=== PATIENT | female | born 1965 | race Caucasian/White ===

== ENCOUNTER 2016-04-04 15:03 | Inpatient (IN) ==
[2016-04-04 15:41] LABS: MANUAL DIFF NEEDED? NO; URINE MICRO REVIEW NEEDED? NO; URINE SOURCE CLEAN CATCH
[2016-04-04 15:56] LABS: BASO% 0.1 % (0.0-0.8); EOS# 0.01 X1000 (0.0-0.7); EOS% 0.1 % (0.0-10.0); HEMATOCRIT 44.3 % (37.0-47.0); HEMOGLOBIN 15.5 g/dL (12.0-16.0); IMM GRAN# 0.05 X1000 (0.0-0.04); IMM GRAN% 0.3 % (0.0-0.5); LYMPH# 2.38 X1000 (1.2-3.4); LYMPH% 13.3 % (20.5-51.1); MCV 88.6 FL (81-99); MONO# 1.26 X1000 (0.11-0.59); MPV 10.4 FL (7.4-10.4); NEUT% 79.2 % (42.2-75.2); PLT 354 X1000 (130-400)
[2016-04-04 15:58] LABS: BILIRUBIN URINE NEGATIVE (NEGATIVE); BLOOD URINE TRACE (NEGATIVE); COLOR YELLOW; GLUCOSE URINE NEGATIVE (NEGATIVE); LEUKOCYTES URINE NEGATIVE (NEGATIVE); NITRITE URINE NEGATIVE (NEGATIVE); PROTEIN URINE 30 mg/dL (NEGATIVE); SP GRAVITY URINE 1.027; TURBIDITY URINE CLEAR (CLEAR); UROBILINOGEN URINE NORMAL (NORMAL)
[2016-04-04 15:59] LABS: UR EPITHELIAL CELLS <10 /HPF (<10); URINE BACTERIA 2+ /HPF; URINE CULTURE NEEDED? YES; URINE RBC <10 /HPF (<10); URINE WBC <10 /HPF (<10)
[2016-04-04 16:16] LABS: AGAP 15; ALBUMIN 4.8 g/dL (3.5-5.0); ALKALINE PHOSPHATASE 80 U/L (32-104); AMYLASE 84 U/L (20-200); BUN 9 mg/dL (8-22); CALCIUM 9.1 mg/dL (8.8-10.2); CHLORIDE 99 mmol/L (98-107); COSMO 273; GOT 22 U/L (10-30); GPT 20 U/L (10-36); LIPASE 29 U/L (13-60); POTASSIUM 3.8 mmol/L (3.5-5.1); SODIUM 136 mmol/L (136-145); TCO2 22 mmol/L (25-35); TOTAL BILIRUBIN 0.43 mg/dL (0.20-1.00); TOTAL PROTEIN 8.1 g/dL (6.3-8.3)
[2016-04-04] MEDS ORDERED: MORPHINE IV ONE ×2 (17:56→20:24)
[2016-04-04] MEDS ORDERED: NS 1,000 ML IV ONE (17:56)
[2016-04-04] MEDS ORDERED: ZOFRAN IV ONE (17:56)
--- NOTE | 2016-04-04 17:56 | PROVIDER DOCUMENTATION ---
HPI-Abdominal Pain/GI Problem <Juliano Harris - Last Filed: 04/04/16 20:25> - General Source: patient <Timothy Payne - Last Filed: 04/04/16 21:19> - General Chief Complaint: Abdominal Pain Stated Complaint: abd pain Time Seen by Provider: 04/04/16 17:20 Allergies/Adverse Reactions: Patient Allergies Allergy/AdvReac Type Severity Reaction Status Date / Time No Known Allergies Allergy Verified 04/04/16 19:10 Home Medications: No Home Medications 09/04/13 - History of Present Illness-ABD Nature of Presenting Problems: Pt is a 50 y/o F c chief complaint of epigastric abd pain that radiates to her back c nausea and vomiting x 24 hours. Pt states that she cannot tolerate liquids and has had brownish yellow emesis. Pt states she has had multiple similar episodes over the last two years. Pt was seen at urgent care this morning and was told to report to the ER if her symptoms worsened. Pt states that her WBC was 14K this morning. Pt denies medical hx. On arrival, pt is in minimal distress. (Timothy Payne) Review of Systems - Adult - REVIEW OF SYSTEMS - ADULT Constitutional: reports: no symptoms reported. denies: chills, fever, fatique Eyes: reports: no symptoms reported. denies: blurred vision, double vision Ears, Nose, Mouth & Throat: reports: no symptoms reported. denies: ear pain, nose pain, throat pain Cardiovascular: reports: no symptoms reported. denies: chest pain, irregular heart rate Respiratory: reports: no symptoms reported. denies: cough, shortness of breath Gastrointestinal: reports: abdominal pain, diarrhea, nausea, vomiting Genitourinary: reports: no symptoms reported. denies: dysuria, flank pain Musculoskeletal: reports: no symptoms reported. denies: joint pain, joint swelling Integumentary: reports: no symptoms reported. denies: hives, itching Neurological: reports: no symptoms reported. denies: numbness, paresthesia Psychiatric: reports: no symptoms reported. denies: anxiety, emotional problems Endocrine: reports: no symptoms reported. denies: cold intolerance, heat intolerance Hematologic/Lymphatic: reports: no symptoms reported. denies: blood clots, low blood count Allergic/Immunologic: reports: no symptoms reported. denies: allergic reactions , food allergy All Other Systems: Reviewed and Negative <Timothy Payne - Last Filed: 04/04/16 21:19> Past History - Adult - PAST MEDICAL HISTORY-ADULT Review of Records: reports: Old Records Reviewed, Nursing Assessment Review, Medications Reviewed, Social history reviewed & non-contributory. Major Childhood Illnesses: reports: denies history Cardiovascular: reports: denies history Respiratory: reports: denies history Gastrointestinal: reports: denies history Obstetrical/Gynecological: reports: denies history Genitourinary: reports: denies history Musculoskeletal: reports: denies history Neurological: reports: denies history Endocrine/Immune: reports: denies history Other Conditions: reports: denies history - PRIOR SURGERIES/PROCEDURES Surgical/Procedure History: reports: none - IMMUNIZATION STATUS Childhood Immunizations: See Nurse Assessment Flu Vaccine: See Nurse Assessment - FAMILY HISTORY Family History: reviewed, not pertinent - SOCIAL HISTORY Smoking: denies Substance Use: none/never Alcohol Use Frequency: never Living Situation: family <Timothy Payne - Last Filed: 04/04/16 21:19> Physical Exam-General - PHYSICAL EXAM-ADULT Initial Vital Signs Reviewed: Yes - CONSTITUTIONAL General Appearance: appears well, alert, no apparent distress - EYES Eyes: PERRL/EOMI, pink conjunctivae - HEAD, EARS, NOSE, MOUTH & THROAT HENMT: normocephalic/atraumatic, moist mucous membranes, normal ENT inspection - NECK Neck: non-tender, full range of motion, normal inspection - RESPIRATORY Respiratory: chest non-tender, lungs clear, normal breath sounds - CARDIOVASCULAR Cardiovascular: normal peripheral pulses, regular rate, rhythm, no edema - GASTROINTESTINAL (ABDOMEN) Abdominal Exam: normal bowel sounds, non tender, soft - LYMPHATIC Lymphatic: no adenopathy - MUSCULOSKELETAL Back Exam: normal inspection, no CVA tenderness, no vertebral tenderness Extremity: normal range of motion, non-tender, normal gait - SKIN Integumentary: normal color, normal turgor, warm/dry - NEUROLOGIC Neurologic: grossly normal, no motor/sensory deficits - PSYCHIATRIC Psych/Mental Status: normal mood/affect, normal thought content, normal thought process, oriented x 3 <Timothy Payne - Last Filed: 04/04/16 21:19> Progress <Juliano Harris - Last Filed: 04/04/16 20:25> - REASSESSMENT Reassessment #1 Time Reassessed: 19:29 (Pt in CT now. ) - CT/MRI 1 CT Study: Abdomen, Pelvis Impression: Abnormal (CHOLELITHIASIS AND ACUTE CHOLECYSTITIS - RADIOLOGY) - CONSULTS/PCP/HOSPITALIST Notification #1 *Consult/PCP/Hospitalist*: Dr. Ramos (General Surgery) Time Discussed: 20:21 (2100 - Dr. Ramos called back and requested we admit pt to his service. He is undecided on if he will take her to surgery tonight or tomorrow. Requested zozyn be given and pt be NPO. ) Reason/Comments: will look at images and determine if pt needs to go to OR tonight <Timothy Payne - Last Filed: 04/04/16 21:19> - PLAN OF CARE/RESULTS Progress/Plan/Lab Results: Vital Signs - 24 hr 04/04/16 04/04/16 15:08 17:07 Temperature 98.1 F Pulse Rate 81 70 Respiratory 18 16 Rate Blood Pressure 174/91 152/76 O2 Sat by Pulse 98 100 Oximetry Orders Category Date Time Status Saline Loc DIRECTED Care 04/04/16 15:18 Active NPO Diet 04/04/16 15:[address] ABD/PELVIS W/ IV CONT ONLY [CT] Stat Exams 04/04/16 17:23 Taken AMYLASE [CHEM] Stat Lab 04/04/16 15:15 Completed CBC WITH ELECTRONIC DIFF [HEME] Stat Lab 04/04/16 15:15 Completed COMPREHENSIVE METABOLIC PANEL [CHEM] Stat Lab 04/04/16 15:15 Completed LIPASE [CHEM] Stat Lab 04/04/16 15:15 Completed TEST-URINE [PREG] Stat Lab 04/04/16 15:20 Completed URINALYSIS W/POSS RFLX CULT [URINALYSIS] Stat Lab 04/04/16 15:15 Completed URINE CULTURE [RM] Routine Lab 04/04/16 16:57 Received 0.9% Sodium Chloride Inj [Ns] 1,000 ml Med 04/04/16 17:56 Discontinued IV 999 mls/hr Lido/Wagner Alk/Al&mg Hydrox [G.i. Cocktail] Med 04/04/16 17:58 Discontinued 30 ml PO NOW ONE Morphine Med 04/04/16 17:56 Discontinued 4 mg IV NOW ONE Morphine Med 04/04/16 20:24 Discontinued 4 mg IV NOW ONE Ondansetron [Zofran] Med 04/04/16 17:56 Discontinued 4 mg IV NOW ONE Pantoprazole [Protonix] Med 04/04/16 17:58 Discontinued 40 mg IV NOW ONE Piperacil/Tazobact 3.375 gm/Ns [Zosyn 3.375 gm/Ns] 50 Med 04/04/16 20:23 Active ml IV NOW Sodium Chloride 0.9% Med 04/04/16 17:58 Discontinued 10 ml INJ NOW ONE Laboratory Tests 04/04/16 04/04/16 04/04/16 15:15 15:15 15:15 WBC 17.88 H RBC 5.00 Hgb 15.5 Hct 44.3 MCV 88.6 MCH 31.0 MCHC 35.0 RDW Std Deviation 12.8 Plt Count 354 MPV 10.4 Immature Gran % (Auto) 0.3 Neut % (Auto) 79.2 H Lymph % (Auto) 13.3 L Faulkner % (Auto) 7.0 Eos % (Auto) 0.1 Baso % (Auto) 0.1 Immature Gran # (Auto) 0.05 H Neut # 14.16 H Lymph # 2.38 Faulkner # 1.26 H Eos # 0.01 Baso # 0.02 Sodium 136 Potassium 3.8 Chloride 99 Carbon Dioxide 22 L Anion Gap 15 BUN 9 Creatinine 0.8 Estimated GFR/1.73 m2 > 60 BUN/Creatinine Ratio 11 Glucose 145 H Calculated Osmolality 273 Calcium 9.1 Total Bilirubin 0.43 AST 22 ALT 20 Alkaline Phosphatase 80 Total Protein 8.1 Albumin 4.8 Globulin 3.3 Albumin/Globulin Ratio 1.5 Amylase 84 Lipase 29 Urine Source CLEAN CATCH Urine Color YELLOW Urine Turbidity CLEAR Urine pH 6.0 Ur Specific [place] 1.027 Urine Protein 30 A Ur Glucose (Stick) NEGATIVE Ur Ketones (Stick) TRACE A Urine Blood TRACE A Urine Nitrite NEGATIVE Urine Bilirubin NEGATIVE Urobilinogen Dipstick NORMAL Urine Leukocytes NEGATIVE Urine WBC (Auto) <10 Urine RBC (Auto) <10 U Epithel Cells (Auto) <10 Urine Bacteria (Auto) 2+ Urine Test 04/04/16 15:20 WBC RBC Hgb Hct MCV MCH MCHC RDW Std Deviation Plt Count MPV Immature Gran % (Auto) Neut % (Auto) Lymph % (Auto) Faulkner % (Auto) Eos % (Auto) Baso % (Auto) Immature Gran # (Auto) Neut # Lymph # Faulkner # Eos # Baso # Sodium Potassium Chloride Carbon Dioxide Anion Gap BUN Creatinine Estimated GFR/1.73 m2 BUN/Creatinine Ratio Glucose Calculated Osmolality Calcium Total Bilirubin AST ALT Alkaline Phosphatase Total Protein Albumin Globulin Albumin/Globulin Ratio Amylase Lipase Urine Source Urine Color Urine Turbidity Urine pH Ur Specific [place] Urine Protein Ur Glucose (Stick) Ur Ketones (Stick) Urine Blood Urine Nitrite Urine Bilirubin Urobilinogen Dipstick Urine Leukocytes Urine WBC (Auto) Urine RBC (Auto) U Epithel Cells (Auto) Urine Bacteria (Auto) Urine Test NEGATIVE (Juliano Harris) Orders Category Date Time Status Saline Loc DIRECTED Care 04/04/16 15:18 Active NPO Diet 04/04/16 15:[address] ABD/PELVIS W/ IV CONT ONLY [CT] Stat Exams 04/04/16 17:23 Taken AMYLASE [CHEM] Stat Lab 04/04/16 15:15 Completed CBC WITH ELECTRONIC DIFF [HEME] Stat Lab 04/04/16 15:15 Completed COMPREHENSIVE METABOLIC PANEL [CHEM] Stat Lab 04/04/16 15:15 Completed LIPASE [CHEM] Stat Lab 04/04/16 15:15 Completed TEST-URINE [PREG] Stat Lab 04/04/16 15:20 Completed URINALYSIS W/POSS RFLX CULT [URINALYSIS] Stat Lab 04/04/16 15:15 Completed URINE CULTURE [RM] Routine Lab 04/04/16 16:57 Received 0.9% Sodium Chloride Inj [Ns] 1,000 ml Med 04/04/16 17:56 Discontinued IV 999 mls/hr Lido/Wagner Alk/Al&mg Hydrox [G.i. Cocktail] Med 04/04/16 17:58 Discontinued 30 ml PO NOW ONE Morphine Med 04/04/16 17:56 Discontinued 4 mg IV NOW ONE Ondansetron [Zofran] Med 04/04/16 17:56 Discontinued 4 mg IV NOW ONE Pantoprazole [Protonix] Med 04/04/16 17:58 Discontinued 40 mg IV NOW ONE Sodium Chloride 0.9% Med 04/04/16 17:58 Discontinued 10 ml INJ NOW ONE Laboratory Tests 04/04/16 04/04/16 04/04/16 15:15 15:15 15:15 WBC 17.88 H RBC 5.00 Hgb 15.5 Hct 44.3 MCV 88.6 MCH 31.0 MCHC 35.0 RDW Std Deviation 12.8 Plt Count 354 MPV 10.4 Immature Gran % (Auto) 0.3 Neut % (Auto) 79.2 H Lymph % (Auto) 13.3 L Faulkner % (Auto) 7.0 Eos % (Auto) 0.1 Baso % (Auto) 0.1 Immature Gran # (Auto) 0.05 H Neut # 14.16 H Lymph # 2.38 Fa[place]ner # 1.26 H Eos # 0.01 Baso # 0.02 Sodium 136 Potassium 3.8 Chloride 99 Carbon Dioxide 22 L Anion Gap 15 BUN 9 Creatinine 0.8 Estimated GFR/1.73 m2 > 60 BUN/Creatinine Ratio 11 Glucose 145 H Calculated Osmolality 273 Calcium 9.1 Total Bilirubin 0.43 AST 22 ALT 20 Alkaline Phosphatase 80 Total Protein 8.1 Albumin 4.8 Globulin 3.3 Albumin/Globulin Ratio 1.5 Amylase 84 Lipase 29 Urine Source CLEAN CATCH Urine Color YELLOW Urine Turbidity CLEAR Urine pH 6.0 Ur Specific [place] 1.027 Urine Protein 30 A Ur Glucose (Stick) NEGATIVE Ur Ketones (Stick) TRACE A Urine Blood TRACE A Urine Nitrite NEGATIVE Urine Bilirubin NEGATIVE Urobilinogen Dipstick NORMAL Urine Leukocytes NEGATIVE Urine WBC (Auto) <10 Urine RBC (Auto) <10 U Epithel Cells (Auto) <10 Urine Bacteria (Auto) 2+ Urine Test 04/04/16 15:20 WBC RBC Hgb Hct MCV MCH MCHC RDW Std Deviation Plt Count MPV Immature Gran % (Auto) Neut % (Auto) Lymph % (Auto) Faulkner % (Auto) Eos % (Auto) Baso % (Auto) Immature Gran # (Auto) Neut # Lymph # Faulkner # Eos # Baso # Sodium Potassium Chloride Carbon Dioxide Anion Gap BUN Creatinine Estimated GFR/1.73 m2 BUN/Creatinine Ratio Glucose Calculated Osmolality Calcium Total Bilirubin AST ALT Alkaline Phosphatase Total Protein Albumin Globulin Albumin/Globulin Ratio Amylase Lipase Urine Source Urine Color Urine Turbidity Urine pH Ur Specific [place] Urine Protein Ur Glucose (Stick) Ur Ketones (Stick) Urine Blood Urine Nitrite Urine Bilirubin Urobilinogen Dipstick Urine Leukocytes Urine WBC (Auto) Urine RBC (Auto) U Epithel Cells (Auto) Urine Bacteria (Auto) Urine Test NEGATIVE Vital Signs - 24 hr 04/04/16 04/04/16 15:08 17:07 Temperature 98.1 F Pulse Rate 81 70 Respiratory 18 16 Rate Blood Pressure 174/91 152/76 O2 Sat by Pulse 98 100 Oximetry (Timothy Payne) Departure - Departure Time of Disposition Order: 20:25 Certified Medical Emergency: Emergent <HarrisChantellJuliano - Last Filed: 04/04/16 20:25> - Departure Time of Disposition Order: 20:23 Certified Medical Emergency: Emergent <Timothy Payne - Last Filed: 04/04/16 21:19> - Departure DIAGNOSIS: Acute cholecystitis Nausea & vomiting Qualifiers: Vomiting type: unspecified Vomiting Intractability: non-intractable Qualified Code(s): R11.2 - Nausea with vomiting, unspecified Abdominal pain Qualifiers: Abdominal location: epigastric Qualified Code(s): R10.13 - Epigastric pain Disposition: HOME 01 Condition: Stable Additional Instructions: ED Follow Up Instructions: You have been treated by a care provider in the Emergency Department. These instructions are being provided to you so you can have an understanding of how to care for yourself upon discharge. Upon discharge from the Emergency Department, you are responsible for making arrangements for follow-up care by a physician of your choice. Take all prescribed medications as directed. Return to the Emergency Department immediately for any new or worsening symptoms. You may call the Physician Referral phone number at [phone] to obtain a list of Physicians who are taking new patients. Referrals: Tyree Becerra MD [Primary Care Provider] - Felicity Knox MD [STAFF PHYSICIAN] - Attestation - Physician/ Mid-level Attestation Patient care was provided by Mid-level provider (WRITING TUTOR/PA):: Yes Mid-level provider:: Timothy Payne Mid-level documentation review:: The Mid-level provider documentation, treatment plan and medical decision making was reviewed by the physician who agrees with all treatment and medical decision making by the [facility]. <Timothy Payne - Last Filed: 04/04/16 21:19> Physician Attestation
[2016-04-04] MEDS ORDERED: SODIUM CHLORIDE 0.9% INJ ONE (17:58)
[2016-04-04] MEDS ORDERED: G.I. COCKTAIL PO ONE (17:58)
[2016-04-04] MEDS ORDERED: PROTONIX IV ONE (17:58)
[2016-04-04] MEDS ORDERED: ZOSYN 3.375 GM/NS 50 ML IV ONE (20:23)
[2016-04-04] MEDS ORDERED: ZOFRAN IV PRN (21:19)
[2016-04-04] MEDS: MORPHINE IV PRN (23:08)
[2016-04-04] MEDS: NS 1,000 ML IV SCH (23:08)
[2016-04-05] MEDS: MORPHINE IV PRN ×3 (01:15→05:51)
[2016-04-05] MEDS ORDERED: KEFZOL 1 GM/D5W 50 ML IV ONE (07:29)
[2016-04-05] MEDS ORDERED: SENSORCAINE 0.25%/EPI 1:200,000 ONE (07:39)
--- NOTE | 2016-04-05 07:54 | HISTORY AND PHYSICAL ---
CHIEF COMPLAINT: Epigastric pain radiating through to the back. HISTORY: This is a pleasant 50-year-old white female who had a steak on and developed significant epigastric pain radiating through to her back on evening. She sought medical attention at an outpatient clinic yesterday and was told to come to the ER if her symptoms did not improve. So, last night, she came to the emergency department. CT scan shows acute cholecystitis. She has had episodes off and on for the past year or so but, since they were intermittent, she has put off any definitive therapy till now. She denies any other significant medical history. She takes no scheduled medications. She has had a x2 and a tonsillectomy in the past. FAMILY HISTORY: Noncontributory. SOCIAL HISTORY: She is . Denies smoking or illicit drug use or alcohol use. REVIEW OF SYSTEMS: Constitutional: Negative for chills, fever. Eyes: Negative for blurred vision. ENT: Negative for sore throat. Cardiovascular: Negative for chest pain or irregular heart rate. Respiratory: Negative for shortness of breath. GI: Pertinent for the pain, nausea, and vomiting. : Negative for dysuria. Musculoskeletal: Negative for joint pain. Neurologic: Negative for seizure activity. Psychiatric: Negative. Endocrine: Negative. Hematologic and lymphatic: Negative. PHYSICAL EXAMINATION: VITAL SIGNS: She is afebrile. Heart rate 65. Respiratory rate 18. Blood pressure 131/65. HEAD: She is normocephalic. NECK: No cervical adenopathy. No thyroid masses are palpated. LUNGS: Clear. HEART: Regular rate and rhythm. ABDOMEN: Soft. She is mildly tender in the epigastrium. EXTREMITIES: She has pedal pulses. No peripheral edema. NEUROLOGICAL: She is awake and alert. LABORATORY DATA: White count is 17,900. Hemoglobin 15. Chemistry is okay. LFTs are normal. ASSESSMENT: Acute calculous cholecystitis. PLAN: We will plan a laparoscopic cholecystectomy. I have discussed the procedure with her, the benefits and risks. She understands and wants to proceed.
[2016-04-05] MEDS ORDERED: LR 1,000 ML ONE (08:04)
[2016-04-05] MEDS ORDERED: SODIUM CHLORIDE 0.9% ONE (08:04)
[2016-04-05] MEDS ORDERED: CLAVE SECONDARY SET 11953 ONE (08:32)
[2016-04-05] MEDS ORDERED: KEFZOL 1 GM/D5W 50 ML ONE (08:32)
[2016-04-05] MEDS ORDERED: MORPHINE IV PRN (09:51)
[2016-04-05] MEDS ORDERED: TORADOL ONE (09:56)
[2016-04-05] MEDS ORDERED: DIPRIVAN 1% ONE (10:37)
[2016-04-05] MEDS ORDERED: FENTANYL ONE (10:37)
--- NOTE | 2016-04-05 11:23 | Diag Imaging Result Document ---
PROCEDURE NAME: CT ABD/PELVIS W/ IV CONT ONLY - 04/04/2016 CT OF THE ABDOMEN WITH INTRAVENOUS CONTRAST: FINDINGS: There is atelectasis or fibrosis in the lingula. There are no previous studies. The spleen, adrenal glands and pancreas are within normal limits. There is at least one calcified stone in the gallbladder neck measuring 9 mm in diameter with another in the fundus which is also quite calcified measuring in excess of 18 mm. There is pericholecystic fluid and gallbladder wall edema consistent with acute cholecystitis. The liver is unremarkable otherwise. The kidneys are without evidence of hydronephrosis or mass. The pancreas is within normal limits. There is no evidence of significant adenopathy. CT OF THE PELVIS WITH INTRAVENOUS CONTRAST: FINDINGS: The appendix is normal in appearance. There is some stool in the colon. No evidence of significant free fluid present and there are no masses seen. The regional skeleton appears to be intact. IMPRESSION: Cholelithiasis and acute cholecystitis.
--- NOTE | 2016-04-05 11:44 | Diag Imaging Result Document ---
PROCEDURE NAME: OPERATIVE CHOLANGIOGRAM - 04/05/2016 INTRAOPERATIVE CHOLANGIOGRAM: FINDINGS: The common bile duct is apparently clear. There is contrast in the duodenum on the second image. IMPRESSION: No evidence of retained stones.
--- NOTE | 2016-04-05 13:39 | OPERATIVE NOTE ---
PROCEDURE DATE: 04/05/2016 PROCEDURE PERFORMED: Laparoscopic cholecystectomy with operative cholangiogram. SURGEON: Hiro Ramos MD. ECD: Swati PREOPERATIVE DIAGNOSIS: Acute calculous cholecystitis. POSTOP DIAGNOSIS: Acute calculous cholecystitis. FINDINGS: The cholangiogram revealed a normal size common duct, free flow in the duodenum. No intraluminal filling defects. The gallbladder was noted to be very edematous. DESCRIPTION OF PROCEDURE: Satisfactory general endotracheal anesthesia achieved, the abdomen is prepped and draped in a sterile fashion. We anesthetized skin at the base of the umbilicus, incised the skin, and carried our incision down to the fascia. We scored the fascia, introduced 11 trocar Optiview technique into the abdominal cavity. We insufflated through this trocar. Under direct visualization used a 5 trocar midclavicular line, a 5 trocar near the anterior axillary line, 11 mm trocar in the midepigastrium. We placed the patient in reverse Trendelenburg and turned her to the left. We noted the gallbladder was distended. We suctioned it with an aspirating needle. We then grasped the fundus of the gallbladder with a ratcheted Allis forceps and reflected it cephalad. We then began dissection of the triangle of Calot. There was quite a few adhesions attached to it. These easily with a lot of edema in the wall of the gallbladder. We then dissected the triangle of Calot, identified the cystic artery, clipped it proximally x2, distally x1, and divided it. The cystic duct was identified. We clipped it near its junction with the gallbladder. We incised the cystic duct, introduced a Desmet catheter, shot the cholangiogram. The findings above were noted. We then divided the cystic duct after clipping it on the opposite side of the ductotomy x2. We then further dissected the triangle. We used the cautery spatula to dissect the gallbladder away from the liver. After complete separation of gallbladder from liver, we changed videolaparoscope to the midepigastric trocar, introduced an EndoCatch, placed the gallbladder within the bag. We delivered out of the abdominal cavity. We had to enlarge the fascial incision at the umbilicus somewhat to deliver the gallbladder completely. We looked back. Hemostasis was satisfactory. We then desufflated, removed our trocars. We closed the fascia at the epigastrium with a 2-0 Polysorb fascial stitch placed under direct visualization and the same at the umbilicus. We then closed the skin at each incision 4-0 Polysorb subcuticular stitches. Sterile OpSite were applied. She tolerated it well. Was sent to the recovery room in satisfactory condition.
[2016-04-05] MEDS: PERIDEX MT SCH ×2 (18:37→21:09)
[2016-04-05] MEDS: NS 1,000 ML IV SCH (18:37)
[2016-04-05] MEDS: NORCO-10 PO PRN (23:07)
[2016-04-06] MEDS: NS 1,000 ML IV SCH ×2 (00:54→05:37)
[2016-04-06 05:22] VITALS: BP 132/69
[2016-04-06] MEDS: NORCO-10 PO PRN (05:38)
[2016-04-06] MEDS: PERIDEX MT SCH (08:20)
[2016-04-08] MEDS ORDERED: NEOSTIGMINE ONE (08:36)
[2016-04-08] MEDS ORDERED: ZOFRAN ONE (08:37)
[2016-04-08] MEDS ORDERED: NEO-SYNEPHRINE ONE (08:37)
[2016-04-08] MEDS ORDERED: ROBINUL ONE (08:37)
[2016-04-08] MEDS ORDERED: LR 2,000 ML ONE (08:38)
[2016-04-08] MEDS ORDERED: XYLOCAINE-MPF 2% ONE (08:38)
[2016-04-08] MEDS ORDERED: ANESTHESIA PB SET 88 IN 5742 ONE (08:38)
[2016-04-08] MEDS ORDERED: QUELICIN (DOSE) ONE (08:38)
[2016-04-08] MEDS ORDERED: NIMBEX 2 MG DOSE ONE (08:38)
[2016-04-08] MEDS ORDERED: EXTENSION SET 32 IN 4522 ONE (08:38)
[2016-04-08] MEDS ORDERED: DECADRON ONE (08:38)
== END 2016-04-06 10:37 | disposition home or self-care (01) | DRG 419 ==
LOC: ED 15:03 → 4N 15:04
PROVIDERS: ADMIT Surgery; ATTEND Surgery
PROC: BF101ZZ Fluoroscopy of Bile Ducts using Low Osmolar Contrast (ICD-10-PCS; 2016-04-05)
PROC: 0FT44ZZ Resection of Gallbladder, Percutaneous Endoscopic Approach (ICD-10-PCS; principal; 2016-04-05 08:35)
DX: K80.12 Calculus of gallbladder with acute and chronic cholecystitis without obstruction (principal); E66.9 Obesity, unspecified; Z68.35 Body mass index [BMI] 35.0-35.9, adult; Z82.49 Family history of ischemic heart disease and other diseases of the circulatory system
CPT/HCPCS: 74177; 74300; 80053; 81001; 81025; 82150; 83690; 85025; 87088; 88304; 94760; 94761; 94799; 96365; 96375; 96376; C9113; J0330; J0690; J1100; J1885; J2270; J2370; J2405; J2543; J3010; J7030; J7120; Q9966; Q9967; J2710; S0164